=== PATIENT | male | born 1960 | race Caucasian/White ===

== ENCOUNTER 2019-04-15 09:00 | Emergency (ER) | payer OTHER, SELFPAY ==
--- NOTE | ~2019-04-15 | XR_ITS ---
EXAMINATION: XR foot LT min 3V DATE: 04/15/2019 10:13 INDICATION: Anterior pain at the left foot in the region of the metatarsophalangeal joints. TECHNIQUE: Dorsoplantar, two oblique and lateral views of the left foot were obtained. COMPARISON: None. FINDINGS: Alignment is normal. No fracture. Linear subarticular sclerosis with subtle flattening of the articul ar cortex at the head of the second metatarsal consistent with osteonecrosis (Freiberg's infraction). Mild osteoarthritis at the first metatarsophalangeal joint and some of the tarsal metatarsal and int erphalangeal joints. Soft tissues are unremarkable. IMPRESSION: 1. 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 2. 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 Reviewed, dictated and finalized at location A. [employer] IMPRESSION: 1. 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 2. 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
[2019-04-15 09:27] VITALS: BP 120/79; PULSE 78; RESP 20; TEMP 36.3; O2SAT 100
--- NOTE | 2019-04-15 09:53 | ED.LOWEXIN ---
HPI - Extremity Injury (Lower) General Chief Complaint: Extremity Injury, Lower Stated Complaint: rt puga abcess infection and left ft Time Seen by Provider: 04/15/19 09:42 Source: patient, family and RN notes reviewed Mode of arrival: ambulatory Limitations: no limitations History of Present Illness HPI Narrative: Patient presents today with multiple complaints.States he has a very large sebaceous cyst to his right puga that has been there for several years and continues to grow in size. He believes he may have an infection to the area. States he has tried going to a surgeon for excision several times, but his insurance will not cover it.He is complaining of redness, swelling, and severe pain to the right foot x4 days. Pain and swelling began in the first MTP and spread from there. He does report some intermittent tingling in the right foot and toes. Since patient's right foot was painful he was using crutches to ambulate. He injured his left foot while using crutches 3 days ago. Since that time, he has been crawling around his home on his hands and knees. Reports he is pain-free at rest, which increases to 10/10 with weightbearing on either foot. Denies any personal history of gout. States he took 6 200mg Acetaminophen This morning prior to arrival, which did provide some mild relief. MD complaint: foot injury Related Data Home Medications Medication Instructions Recorded Confirmed apixaban [Eliquis] 5 mg PO BID 04/15/19 04/15/19 lisinopril 04/15/19 metoprolol succinate 04/15/19 torsemide 04/15/19 Allergies Allergy/AdvReac Type Severity Reaction Status Date / Time Penicillins Allergy Hives Verified 04/15/19 09:54 Review of Systems Review of Systems: Narrative: CONSTITUTIONAL: Denies body aches, fever, chills, or sweats. EYES: Denies visual changes, redness, or discharge. ENT: Denies rhinorrhea, congestion, sore throat, or otalgia. CARDIOVASCULAR: Denies chest pain, palpitations, or edema. RESPIRATORY: Denies cough or dyspnea. GASTROINTESTINAL: Denies abdominal pain, nausea, vomiting, or diarrhea. GENITOURINARY: Denies dysuria or hematuria. SKIN: Denies rash, itching, or wounds. Large cyst to right puga MUSCULOSKELETAL: Denies back pain, or myalgia. +Right foot pain, redness, and swelling, left foot pain and swelling NEUROLOGIC: Denies headache, numbness, tingling, or weakness. PSYCH: Denies depression or anxiety. [facility] Past Medical History Medical History (Updated 04/15/19 @ 10:55 by Hafsa Nichols, [facility], ) Congestive heart failure Comments At time of signature, I have reviewed and agree with nursing past medical, surgical, social and family history unless otherwise noted. Please see nursing chart for further information. There is no relevant family history pertinent to the presenting complaint Exam Narrative: Exam Narrative: GENERAL: Chronically ill-appearing, well-nourished, and in no acute distress. HEAD: Normocephalic, atraumatic. EYES: EOMI. No redness or drainage. Conjunctivae normal. ENT: Mucous membranes pink and moist. NECK: Normal AROM. Supple. No lymphadenopathy. CHEST: No respiratory distress. Clear to auscultation. HEART: Regular rate and rhythm. No murmur appreciated. Normal peripheral pulses. EXTREMITIES: Right foot: Erythema and mild edema of the foot, most pronounced at the 1st MTP. Tender to palpation. Distal sensation intact. Capillary refill normal. Pedal pulse normal. Left foot:Tenderness and mild localized edema to the dorsum of the foot at metatarsals 3 and 4. Distal sensation intact. Capillary refill normal. Pedal pulse normal. SKIN: Warm, dry, no rash.8x8 cm tight fluctuant lesion that stands ~3-4cm off the surface of the skin. Small area of ecchymosis in the center. Moveable. NEURO: No focal deficits. Alert and oriented x3. Gait steady. PSYCH: Normal affect. No signs of depression or anxiety. Course Vital Signs Vital signs: Vital Signs Temperature
== END 2019-04-15 11:05 | disposition home or self-care (01) ==
PROVIDERS: Emergency Provider Nurse Practitioner
DX: L03.115 Cellulitis of right lower limb (principal); M10.9 Gout, unspecified; S93.602A Unspecified sprain of left foot, initial encounter; X58.XXXA Exposure to other specified factors, initial encounter; I50.9 Heart failure, unspecified
CPT/HCPCS: 73630; 99204; G0463

== ENCOUNTER 2020-11-24 14:52 | Emergency (ER) | payer OTHER, SELFPAY ==
--- NOTE | ~2020-11-24 | XR_ITS ---
EXAMINATION: XR foot RT min 3V EXAM DATE: 11/24/2020 15:46 INDICATION: Right foot pain swelling/no known trauma/pain 1st toe. TECHNIQUE: Right foot dorsoplantar, lateral and oblique projections obtained and reviewed. There is no prior study for comparison. FINDINGS: Right metatarsal bones unremarkable. There are no bony erosions identified. There is mil d 1st metatarsophalangeal joint primary osteoarthritis. There are no bony erosions identified. There are no acute fractures or dislocations identified. There is no subcutaneous gas. The soft tissue i s unremarkable. There are no radiopaque foreign bodies. IMPRESSION: Mild right 1st MTP osteoarthritis. Reviewed, dictated and finalized at location A.
[2020-11-24 15:04] VITALS: BP 114/69; PULSE 72; RESP 18; TEMP 36.8; O2SAT 100
--- NOTE | 2020-11-24 15:21 | ED.LOWEXIN ---
HPI - Extremity Injury (Lower) General Chief Complaint: Extremity Injury, Lower Stated Complaint: Right foot pain swollen Time Seen by Provider: 11/24/20 15:21 Source: patient, family, RN notes reviewed and old records reviewed Mode of arrival: ambulatory Limitations: no limitations History of Present Illness HPI Narrative: 60-year-old male who presents accompanied by with complaints of pain to the arch and heel of his right foot with swelling to his right foot. Patient states that his pain to his right foot started on Monday or of last week with swelling increase noted today. Patient has stated history of gout to his right foot before and took colchicine but he is out. Patient is ambulating on crutches denies any injury to foot, swelling is present to dorsal foot with no areas of redness noted. Patient states that pain is 10/10, has taken cheery juice and Tylenol for pain also ice and elevation with no decrease. MD complaint: other (swelling and pain to right foot) Related Data Home Medications Medication Instructions Recorded Confirmed apixaban [Eliquis] 5 mg PO BID 04/15/19 11/24/20 torsemide 20 mg PO DAILY 04/15/19 11/24/20 metoprolol succinate 150 mg PO DAILY 11/24/20 11/24/20 sacubitril-valsartan [Entresto] 87 tablet PO BID 11/24/20 11/24/20 spironolactone 25 mg PO DAILY 11/24/20 11/24/20 Allergies Allergy/AdvReac Type Severity Reaction Status Date / Time Penicillins Allergy Hives Verified 11/24/20 15:11 Review of Systems Review of Systems: CONSTITUTIONAL: Denies fever, chills, or sweats. EYES: Denies visual changes, redness, or discharge. ENT: Denies rhinorrhea, congestion, sore throat, or otalgia. CARDIOVASCULAR: Denies chest pain, palpitations, or edema. RESPIRATORY: Denies cough or dyspnea. GASTROINTESTINAL: Denies abdominal pain, nausea, vomiting, or diarrhea. GENITOURINARY: Denies dysuria or hematuria. SKIN: Denies rash or itching. MUSCULOSKELETAL: Denies back pain,positive for swelling of entire foot and pain to his right foot in arch and heel area , or myalgia. NEUROLOGIC: Denies headache, numbness, or weakness. PSYCHIATRIC: Denies anxiety or depression. All systems reviewed & are unremarkable except as noted in HPI and below PMFSH Past Medical History Medical History (Updated 11/26/20 @ 15:43 by Madhuri Whaley NP) Atrial fibrillation CAD (coronary artery disease) Congestive heart failure COPD (chronic obstructive pulmonary disease) Surgical History Surgical History (Updated 11/26/20 @ 15:43 by Madhuri Whaley NP) H/O cardiac radiofrequency ablation History of heart valve repair S/P implantation of automatic cardioverter/defibrillator (AICD) Comments At time of signature, agree with nursing past medical, surgical, social and family history. There is no relevant family history pertinent to the presenting complaint Exam Narrative: GENERAL: Well-appearing, well-nourished, and in no acute distress. HEAD: Normocephalic, atraumatic. EYES: PERRLA and EOMI. ENT: Nares clear, no rhinorrhea or epistaxis. Mucous membranes moist.TM's normal with good light reflex, throat normal with no lesions or exudates, no tonsil enlargement. NECK: Supple.no lymphadenopathy, CHEST: Clear to auscultation. No respiratory distress.SAO2 100% on room air HEART: Regular rate and rhythm. No murmur heard. Normal peripheral pulses. ABDOMEN: Soft, nontender, nondistended, normal active bowel sounds. EXTREMITIES: Normal range of motion. No edema.with exception to right foot which has pitting edema noted to dorsal aspect of foot, pedal pulses is palpable of adequate quality with toes pink and warm with brisk capillary refill, pain to arch of foot and heel SKIN: Warm, dry, no rash. NEURO: No focal deficits. Alert and oriented x3. Course Vital Signs Vital signs: Vital Signs Temperature 36.8 C 11/24/20 15:04 Pulse Rate 72 11/24/20 15:04 Respiratory Rate 18 11/24/20 15:04 Blood Pressure 114/69
== END 2020-11-24 16:28 | disposition home or self-care (01) ==
PROVIDERS: Emergency Provider Registered Nurse
DX: M19.071 Primary osteoarthritis, right ankle and foot (principal); M10.9 Gout, unspecified; I48.91 Unspecified atrial fibrillation; I25.10 Atherosclerotic heart disease of native coronary artery without angina pectoris; I50.9 Heart failure, unspecified; J44.9 Chronic obstructive pulmonary disease, unspecified
CPT/HCPCS: 73630; 99213; G0463

== ENCOUNTER 2022-03-16 10:05 | Emergency (ER) | payer OTHER, SELFPAY ==
[2022-03-16 10:13] VITALS: BP 135/78; PULSE 69; RESP 16; TEMP 36.6; O2SAT 100
--- NOTE | 2022-03-20 19:08 | ED.SKABFB ---
HPI - Skin/Abscess/Foreign Bdy General Chief complaint: Skin/Abscess/Foreign Body Stated complaint: Skin Sore/Right Foot Pain Time Seen by Provider: 03/16/22 10:30 Source: patient Mode of arrival: ambulatory Limitations: no limitations History of Present Illness HPI narrative: 61 yo M presents with c/o pain and redness to R great toe with mild swelling. reports hx of similar symptoms that were gout. has taken colchicine in the past that has helped. Pt also reports redness, pain, swelling behind L ear for about a week. Getting progressively worse. States that he has had cyst behind L ear for a long time . All systems reviewed and negative except as noted above. Related Data Home Medications Medication Instructions Recorded Confirmed apixaban 5 mg tablet (Eliquis) 5 mg PO BID 04/15/19 03/16/22 metoprolol succinate 100 mg 150 mg PO DAILY 11/24/20 03/16/22 tablet,extended release 24 hr sacubitril 97 mg-valsartan 103 mg 87 tablet PO BID 11/24/20 03/16/22 tablet (Entresto) spironolactone 25 mg tablet 25 mg PO DAILY 11/24/20 03/16/22 Allergies Allergy/AdvReac Type Severity Reaction Status Date / Time Penicillins Allergy Hives Verified 03/16/22 10:23 Review of Systems Review of Systems: CONSTITUTIONAL: Denies fever, chills, or sweats. EYES: Denies visual changes, redness, or discharge. ENT: Denies rhinorrhea, congestion, sore throat, or otalgia. CARDIOVASCULAR: Denies chest pain, palpitations, or edema. RESPIRATORY: Denies cough or dyspnea. GASTROINTESTINAL: Denies abdominal pain, nausea, vomiting, or diarrhea. GENITOURINARY: Denies dysuria or hematuria. SKIN: reports redness, swelling right great toe. Reports swelling, redness to cyst behind left ear. MUSCULOSKELETAL: Denies back pain, joint pain, or myalgia. NEUROLOGIC: Denies headache, numbness, or weakness. PSYCHIATRIC: Denies anxiety or depression. All other systems reviewed are negative, except as documented in HPI. [facility] Past Medical History Medical History (Updated 03/17/22 @ 00:00 by Background Daemon) Atrial fibrillation CAD (coronary artery disease) Congestive heart failure COPD (chronic obstructive pulmonary disease) Surgical History Surgical History (Updated 11/26/20 @ 15:43 by Madhuri Whaley NP) H/O cardiac radiofrequency ablation History of heart valve repair S/P implantation of automatic cardioverter/defibrillator (AICD) Comments At time of signature, agree with nursing past medical, surgical, social and family history. There is no relevant family history pertinent to the presenting complaint. Exam Narrative: GENERAL: This is a well-nourished, well-developed patient, in no apparent distress. HEAD: normocephalic, atraumatic. EYES: PERRL. Sclera clear/white. Vision is grossly intact. EARS: Abscess to posterior left earlobe approximately 3 x 2 cm. Fluctuant. NOSE: External nose normal NECK: Neck supple, non-tender without lymphadenopathy, masses or thyromegaly. CARDIOVASCULAR: Regular rate and rhythm without murmurs, gallops, or rubs. RESPIRATORY: Clear to auscultation. Breath sounds equal bilaterally. No wheezes, rales, or rhonchi. SKIN: Erythema, swelling, warm to touch right great toe. Tender on palpation. NEURO: awake, alert, and oriented to person, place and time. There were no obvious focal neurologic abnormalities. EXTREMITIES: No joint tenderness, effusion, or edema noted. Course Course Level of Care: Express Care Visit Vital Signs Vital signs: Vital Signs Temperature 36.6 C 03/16/22 10:13 Pulse Rate 69 03/16/22 10:13 Respiratory Rate 16 03/16/22 10:13 Blood Pressure 135/78 03/16/22 10:13 Pulse Oximetry 100 03/16/22 10:13 Oxygen Delivery Room Air 03/16/22 10:13 Temperature 36.6 C 03/16/22 10:13 Pulse Rate 69 03/16/22 10:13 Respiratory Rate 16 03/16/22 10:13 Blood Pressure 135/78 03/16/22 10:13 Pulse Oximetry 100 03/16/22 10:13 Oxygen Delivery Room Air 03/16/22
== END 2022-03-16 10:55 | disposition home or self-care (01) ==
PROVIDERS: Emergency Provider Nurse Practitioner Family
DX: H60.02 Abscess of left external ear (principal); M10.9 Gout, unspecified; I48.91 Unspecified atrial fibrillation; I25.10 Atherosclerotic heart disease of native coronary artery without angina pectoris; I50.9 Heart failure, unspecified; J44.9 Chronic obstructive pulmonary disease, unspecified; Z95.810 Presence of automatic (implantable) cardiac defibrillator
CPT/HCPCS: 10060; 87070; 87205; 99213; G0463

== ENCOUNTER 2024-03-18 16:14 | Emergency (ER) | payer OTHER, SELFPAY ==
[2024-03-18 16:28] VITALS: BP 138/85; PULSE 66; RESP 16; TEMP 36.4; O2SAT 100
--- NOTE | 2024-03-18 16:35 | ED.DENTAL ---
HPI - Dental/Oral General Chief complaint: Dental/Oral Stated complaint: pain inflammation roof of mouth/nose Time Seen by Provider: 03/18/24 16:49 Source: patient and RN notes reviewed Mode of arrival: ambulatory Limitations: no limitations History of Present Illness HPI Narrative: 63-year-old male presents with concern for pain in the roof of his mouth, headache sinus pain. He denies any dental pain or injury. Denies dental pain. He reports he felt feverish but did not take his temperature. Related Data Home Medications ?Medication ?Instructions ?Recorded ?Confirmed ?Last Taken ?Type apixaban 5 mg tablet (Eliquis) 5 mg PO BID 04/15/19 03/16/22 Unknown History metoprolol succinate 100 mg 150 mg PO DAILY 11/24/20 03/16/22 Unknown History tablet,extended release 24 hr sacubitril 97 mg-valsartan 103 mg 87 tablet PO BID 11/24/20 03/16/22 Unknown History tablet (Entresto) spironolactone 25 mg tablet 25 mg PO DAILY 11/24/20 03/16/22 Unknown History Allergies Allergy/AdvReac Type Severity Reaction Status Date / Time Penicillins Allergy Hives Verified 03/16/22 10:23 Review of Systems Review of Systems: CONSTITUTIONAL: Denies malaise, chills, sweats. Reports tactile fever. EYES: Denies visual changes, redness, or discharge. ENT: Reports rhinorrhea, congestion, sinus pain, pain in the roof of his mouth. CARDIOVASCULAR: Denies chest pain, palpitations, or edema. RESPIRATORY: Denies cough. Denies dyspnea. GASTROINTESTINAL: Denies abdominal pain, nausea, vomiting, diarrhea SKIN: Denies rash or itching. MUSCULOSKELETAL: Denies myalgia. NEUROLOGIC: Reports headache. All systems reviewed & are unremarkable except as noted in HPI and below PMFSH Past Medical History Medical History (Updated 03/18/24 @ 16:57 by Danielle Kent NP) CAD (coronary artery disease) Atrial fibrillation COPD (chronic obstructive pulmonary disease) Congestive heart failure Surgical History Surgical History (Updated 11/26/20 @ 15:43 by Madhuri Whaley NP) H/O cardiac radiofrequency ablation S/P implantation of automatic cardioverter/defibrillator (AICD) History of heart valve repair Comments At time of signature, agree with nursing past medical, surgical, social and family history. There is no relevant family history pertinent to the presenting complaint Exam Narrative: GENERAL: Well-appearing, well-nourished, and in no acute distress. HEAD: Normocephalic EYES: PERRLA, conjunctivae clear ENT: Nares clear, turbinates edematous and erythematous, sinus tenderness. Mucous membranes moist. TM pearly gutierrez with dull light reflex bilaterally; no tragal tenderness. Oropharynx not erythematous without lesions. Tonsils not enlarged and without exudate, no drooling, no hoarseness, no trismus, uvula midline. NECK: Supple. No lymphadenopathy CHEST: Clear to auscultation, breath sounds equal.No respiratory distress, speaks in full sentences. HEART: Regular rate and rhythm. No murmur heard. SKIN: Warm, dry, no rash. NEURO: Alert and oriented x3. PSYCH: Normal mood and affect Course Course Emergency Course: Patient is aware of diagnosis, understands and agrees to treatment plan. Anticipatory guidance given. Patient agrees to follow-up as directed and is aware of reasons to seek care at the emergency department. Portions of this record may have been created with voice recognition software Level of Care: Express Care Visit Vital Signs Vital signs: Vital Signs Temperature 97.5 F L 03/18/24 16:28 Pulse Rate 66 03/18/24 16:28 Respiratory Rate 16 03/18/24 16:28 Blood Pressure 138/85 03/18/24 16:28 Pulse Oximetry 100 03/18/24 16:28 Oxygen Delivery Room Air 03/18/24 16:28 Temperature 97.5 F L 03/18/24 16:28 Pulse Rate 66 03/18/24 16:28 Respiratory Rate 16 03/18/24 16:28 Blood Pressure 138/85 03/18/24 16:28 Pulse Oximetry 100 03/18/24 16:28 Oxygen Delivery Room Air 03/18/24 16:28 Reviewed. MDM - Dental/Oral MDM Narrative Medical decision making narrative: I evaluated this patient in the express care. History is obtained from patient who is an independent historian and physical exam was performed.? Available medical records were reviewed. ? Exam findings show no acute concerns or changes; patient is non-toxic appearing and is in no distress. ? Differential diagnosis and treatment plan were discussed with the patient. Patient agrees with discussion and after shared medical decision making agrees with plan of care. All questions were answered to the patient's satisfaction. Patient is appropriate for outpatient treatment and follow-up. Lab Data Attestation: I reviewed the patient's lab results. Critical Care Time Critical Care Time Critical Care Time: No Discharge Plan Discharge Clinical Impression: Sinusitis Patient Disposition: Home, Self-Care Condition: Stable Instructions: Antibiotic Form Additional Instructions: 1) Please follow-up with your primary care doctor in the next 1-2 days. 2) If you have any worsening of symptoms or any other urgent concerns please go to the ER. 3) Please take medications as prescribed and continue taking your home medications as usual. 4) Please read and follow information included in discharge instructions. Patient Language: Serbian Prescriptions: New clindamycin HCl 300 mg capsule 300 mg PO Q8H 7 Days Qty: 21 0RF No Action spironolactone 25 mg tablet 25 mg PO DAILY Entresto 97-103 mg tablet 87 tablet PO BID metoprolol succinate 100 mg tablet extended release 24 hr 150 mg PO DAILY prednisone 10 mg tablet 10 mg PO DAILY Qty: 21 0RF Rx Instructions: 6 tabs day 1, 5 tabs day 2, 4 tabs day 3, 3 tabs day 4, 2 tabs day 5, 1 tab day 6 Eliquis 5 mg Tablet 5 mg PO BID colchicine 0.6 mg capsule 0.6 mg PO DAILY 1 Days Qty: 3 0RF Rx Instructions: Take 2 tablets then 1 hour later take one tablet. clindamycin HCl 300 mg capsule 300 mg PO Q8H 10 Days Qty: 30 0RF Follow-up/Referrals: PHYSICIAN NOT ON STAFF,NONSTAFF [Primary Care Provider] - Time of Disposition: 16:58
== END 2024-03-18 17:06 | disposition home or self-care (01) ==
PROVIDERS: Emergency Provider Nurse Practitioner
DX: J32.9 Chronic sinusitis, unspecified (principal); I25.10 Atherosclerotic heart disease of native coronary artery without angina pectoris; I48.91 Unspecified atrial fibrillation; J44.9 Chronic obstructive pulmonary disease, unspecified; I50.9 Heart failure, unspecified; Z79.01 Long term (current) use of anticoagulants
CPT/HCPCS: 99213; G0463